=== PATIENT | male | born 1965 | race Caucasian/White ===

== ENCOUNTER → 2016-10-01 | Outpatient (CLI) | payer OTHER ==
[~2016-10-01] MED LIST: ADVIL200 MG PO; AFRIN) (GENASAL15 ML NOSE; ASPIRIN (CHILDR81 MG PO; ASPIRIN LO-DOSE81 MG PO; CLARITIN10 M2 PO; COUMADIN ** IA5 MG PO; FERGON325 M1 PO; FISH OIL1000 MG PO; LOVENOX 4040 MG/0.4 SUB-Q; METAMUCIL CAPSU1 CAP PO; NORCO 10-325 T1 EACH PO; SURFAK240 MG PO; THERAGRAN-M1 TAB PO; XARELTO15 MG PO
== END | disposition disaster alternative care site (69) ==
LOC: GRAD 09-30 08:00
DX: Z47.89 Encounter for other orthopedic aftercare (principal); S32.401D Unspecified fracture of right acetabulum, subsequent encounter for fracture with routine healing; X58.XXXD Exposure to other specified factors, subsequent encounter